=== PATIENT | male | born 1965 | race Asian ===

== ENCOUNTER 2017-05-12 05:23 | Inpatient (IN) | payer OTHER ==
[2017-05-04 15:11] LABS: ANION GAP 6 mmol/L (8-16); CALCIUM, TOTAL 9.9 mg/dL (8.8-10.5); CARBON DIOXIDE 31 mmol/L (22-29); CHLORIDE 97 mmol/L (98-107); CREATININE 1.23 mg/dL (0.60-1.30); GLOMERULAR FILTR. RATE CALC > 60 mL/min (>60); POTASSIUM 4.1 mmol/L (3.5-5.1); SODIUM SERUM 134 mmol/L (136-145); UREA NITROGEN, BLOOD 18 mg/dL (7-18)
[2017-05-04 15:17] LABS: ALANINE AMINOTRANSFERASE 121 U/L (12-78); ALBUMIN 4.5 g/dL (3.4-5.0); ASPARTATE AMINOTRANSFERASE 41 U/L (15-37); BILIRUBIN,TOTAL 1.1 mg/dL (0.1-1.0); TOTAL PROTEIN, SERUM 8.6 g/dL (6.4-8.2)
[~2017-05-12] VITALS: Ht 165.1 cm; Wt 72.7 kg
[~2017-05-12 05:23] MED LIST: CeFAZolin 2 GM/DEXTROSE 50 ML IV ONE; RINGERS SOLUTION,LACTATED 1,000 ML IV ONE
[2017-05-12] MEDS ORDERED: RINGERS SOLUTION,LACTATED 1,000 ML IV ONE ×2 (05:30→08:27)
[2017-05-12] MEDS ORDERED: ATOR20TA86 PO (05:46)
[2017-05-12] MEDS ORDERED: CHOL200012 PO (05:46)
[2017-05-12] MEDS ORDERED: CYAN250014 PO (05:46)
[2017-05-12] MEDS ORDERED: FERR-82 PO (05:46)
[2017-05-12] MEDS ORDERED: LISI1TAB9 PO (05:46)
[2017-05-12] MEDS ORDERED: CeFAZolin 2 GM/DEXTROSE 50 ML IV ONE (06:00)
[2017-05-12] MEDS ORDERED: ONDANSETRON HCL 4 MG/2 ML VIAL IVP PRN (06:45)
[2017-05-12] MEDS ORDERED: PROMETHAZINE HCL 12.5 MG in SODIUM CHLORIDE 0.9% 50 ML IV PRN (06:45)
[2017-05-12] MEDS ORDERED: MAG HYDROX/AL HYDROX/SIMETH 30 ML SUSP UDCUP PO PRN (06:45)
[2017-05-12] MEDS ORDERED: ZOLPIDEM TARTRATE 10 MG TABLET PO PRN (06:45)
[2017-05-12] MEDS ORDERED: DiphenhydrAMINE HCL 50 MG/ML VIAL IVP PRN (06:45)
[2017-05-12] MEDS ORDERED: PROMETHAZINE HCL 25 MG/ML VIAL IM PRN (07:15)
[2017-05-12] MEDS ORDERED: FentaNYL CITRATE-PF 100 MCG/2 ML VIAL IVP PRN (07:15)
[2017-05-12] MEDS ORDERED: ONDANSETRON HCL 4 MG/2 ML VIAL IM PRN (07:15)
[2017-05-12] MEDS ORDERED: HYDROmorphone 2 MG/ML SYRINGE IVP PRN ×2 (07:15)
[2017-05-12] MEDS ORDERED: MEPERIDINE-PF 25 MG/ML SYRINGE IVP PRN (07:15)
[2017-05-12] MEDS ORDERED: OXYGEN THERAPY IH SCH (08:00)
[2017-05-12] MEDS: CYCLOBENZAPRINE HCL 10 MG TABLET PO SCH ×3 (09:00→20:32)
[2017-05-12] MEDS ORDERED: DOCUSATE SODIUM 100 MG CAPSULE PO SCH (09:00)
[2017-05-12] MEDS: DOCUSATE SODIUM 100 MG CAPSULE PO SCH (09:00)
[2017-05-12 10:43] VITALS: BP 151/103
[2017-05-12 11:15] VITALS: BP 147/94
[2017-05-12] MEDS: ACETAMINOPHEN 1000 MG/ISO-OSM 100 ML IV SCH ×2 (14:04→20:32)
[2017-05-12 15:21] VITALS: BP 125/79
[2017-05-12 21:02] VITALS: BP 118/74
[2017-05-13 00:20] VITALS: BP 110/65
[2017-05-13] MEDS ORDERED: PHENYLEPHRINE HCL 10 MG/ML VIAL IVP ONE (00:51)
[2017-05-13] MEDS ORDERED: SUCCINYLCHOLINE CHLORIDE 20 MG/ML 10 ML VIAL IVP ONE (00:51)
[2017-05-13] MEDS ORDERED: MIDAZOLAM HCL 2 MG/2 ML VIAL IVP ONE (00:51)
[2017-05-13] MEDS ORDERED: METOCLOPRAMIDE HCL 5 MG/ML 2 ML VIAL IVP ONE (00:51)
[2017-05-13] MEDS ORDERED: DEXAMETHASONE SOD PHOS 4 MG/ML VIAL IVP ONE (00:51)
[2017-05-13] MEDS ORDERED: LIDOCAINE HCL/PF 2% 5 ML VIAL IM ONE (00:51)
[2017-05-13] MEDS ORDERED: PROPOFOL 1% 20 ML VIAL IVP ONE (00:51)
[2017-05-13] MEDS ORDERED: ONDANSETRON HCL 4 MG/2 ML VIAL IVP ONE (00:51)
[2017-05-13] MEDS ORDERED: FentaNYL CITRATE-PF 250 MCG/5 ML VIAL IVP ONE (00:51)
[2017-05-13] MEDS: ACETAMINOPHEN 1000 MG/ISO-OSM 100 ML IV SCH ×2 (02:06→07:15)
[2017-05-13 03:01] VITALS: BP 111/78
[2017-05-13 08:00] VITALS: BP 129/70
[2017-05-13] MEDS: DOCUSATE SODIUM 100 MG CAPSULE PO SCH (08:29)
[2017-05-13] MEDS: CYCLOBENZAPRINE HCL 10 MG TABLET PO SCH (08:30)
[2017-05-13 11:45] VITALS: BP 128/82
== END 2017-05-13 11:48 | disposition home or self-care (01) | DRG 473 ==
LOC: 4E 05:23
PROVIDERS: ADMIT Orthopaedic Surgery Orthopaedic Surgery of the Spine; ATTEND Orthopaedic Surgery Orthopaedic Surgery of the Spine
PROC: 0RG2070 Fusion of 2 or more Cervical Vertebral Joints with Autologous Tissue Substitute, Anterior Approach, Anterior Column, Open Approach (ICD-10-PCS; principal; 2017-05-12 06:30)
DX: M48.02 Spinal stenosis, cervical region (principal)
CPT/HCPCS: 87081; 93005; 97161; 97165; 97530; C1713; J0131; J0330; J0690; J1100; J2250; J2370; J2405; J2704; J2765; J3010; J3490; J7120